=== PATIENT | female | born 1980 | race Caucasian/White ===

== ENCOUNTER 2024-01-04 19:15 | Emergency (ER) | payer OTHER, MEDICAID ==
[~2024-01-04] VITALS: Ht 175.3 cm; Wt 95.0 kg
[2024-01-04 19:30] VITALS: BP 151/98
== END 2024-01-04 21:03 | disposition home or self-care (01) | DRG 204 ==
LOC: ED 19:15
DX: R05.9 Cough, unspecified (principal); J02.9 Acute pharyngitis, unspecified; R11.0 Nausea; R50.9 Fever, unspecified; Z20.822 Contact with and (suspected) exposure to COVID-19